=== PATIENT | female | born 1990 | race Caucasian/White ===

== ENCOUNTER 2017-07-16 08:05 | Day surgery (SDC) | payer OTHER ==
[~2017-07-16] VITALS: Ht 160 cm; Wt 125.2 kg
[~2017-07-16 08:05] MED LIST: ACEBUTCAFT PO; ALBU90OI INH; AMIT25 PO; AMOCLA875 PO; ARIP10 PO; ATEN50 PO; AZIT250 PO; Ativan1 MG PO; BIRTH CONTROL; CEPH500 PO; CHOL10002 PO; CODBUTACEC PO; CYCL10 PO; Camila0.35 MG PO; DULO60 PO; ERGO50000 PO; ETHINYL ESTRADIOL; FLUO10 PO; FLUO20 PO; FLUOXETINE HCL60 MG PO; FLUT.05NI; Flonase 0.05% N16 GM; GABA300 PO; GUAIFENESIN1200 MG PO; HYDACE5 PO; IBUP800 PO; KETO10 PO; LEVSOD75 PO; LITH300C PO; LORA2 PO; NAPR500 PO; NAPR550 PO; NASACORT10.8 ML INH; NITR100CA PO; NORGESTIMATE; OXYACE5T PO; PANT20 PO; PENVK500 PO; PROC10 PO; PROCODE120 PO; PROG100 PO; RANI150 PO; RISP.5 PO; RISP1 PO; RXHYD5325 PO; RXONDA4ODT MM; RXOXYACE PO; SERT100 PO; SPRINTEC; SULTRIDS PO; SULTRISS PO; Synthroid25 MCG PO; TIZA4 PO; TOPI25 PO; TOPI50 PO; VERAMYST; ZOLP5 PO
== END 2017-07-16 23:34 | disposition home or self-care (01) ==
LOC: ORSCMMR 08:05
PROVIDERS: Internal Medicine Gastroenterology
PROC: 0DB98ZX Excision of Duodenum, Via Natural or Artificial Opening Endoscopic, Diagnostic (ICD-10-PCS; principal; 2017-07-16 09:45)
PROC: 0DB68ZX Excision of Stomach, Via Natural or Artificial Opening Endoscopic, Diagnostic (ICD-10-PCS; principal; 2017-07-16 09:45)
PROC: 0DBL8ZX Excision of Transverse Colon, Via Natural or Artificial Opening Endoscopic, Diagnostic (ICD-10-PCS; principal; 2017-07-16 09:45)
PROC: 0DBB8ZX Excision of Ileum, Via Natural or Artificial Opening Endoscopic, Diagnostic (ICD-10-PCS; principal; 2017-07-16 09:45)
PROC: 0DBE8ZX Excision of Large Intestine, Via Natural or Artificial Opening Endoscopic, Diagnostic (ICD-10-PCS; principal; 2017-07-16 09:45)
DX: K92.1 Melena (principal); K29.50 Unspecified chronic gastritis without bleeding; D12.3 Benign neoplasm of transverse colon; K64.8 Other hemorrhoids; K57.30 Diverticulosis of large intestine without perforation or abscess without bleeding; R19.7 Diarrhea, unspecified; K21.9 Gastro-esophageal reflux disease without esophagitis; M79.7 Fibromyalgia; F41.9 Anxiety disorder, unspecified; E03.9 Hypothyroidism, unspecified; F31.9 Bipolar disorder, unspecified; Z79.899 Other long term (current) drug therapy
CPT/HCPCS: 88305; 88342; J7120

== ENCOUNTER 2018-02-07 12:11 | Day surgery (SDC) | payer OTHER ==
[~2018-02-07] VITALS: Ht 160 cm; Wt 122.8 kg
[2018-02-07] MEDS ORDERED: Zanaflex4 M1 PO (13:05)
[2018-02-07] MEDS ORDERED: MELO7.5 (13:06)
== END 2018-02-07 16:55 | disposition home or self-care (01) ==
LOC: ORSCSDS 12:11
PROVIDERS: Podiatrist Foot & Ankle Surgery
PROC: 0JNQ0ZZ Release Right Foot Subcutaneous Tissue and Fascia, Open Approach (ICD-10-PCS; principal; 2018-02-07 14:00)
PROC: 0QBN0ZZ Excision of Right Metatarsal, Open Approach (ICD-10-PCS; principal; 2018-02-07 14:00)
PROC: 0L8N0ZZ Division of Right Lower Leg Tendon, Open Approach (ICD-10-PCS; principal; 2018-02-07 14:00)
DX: M21.621 Bunionette of right foot (principal); M24.571 Contracture, right ankle; M72.2 Plantar fascial fibromatosis; E03.9 Hypothyroidism, unspecified; K21.9 Gastro-esophageal reflux disease without esophagitis; E66.01 Morbid (severe) obesity due to excess calories; Z68.42 Body mass index [BMI] 45.0-49.9, adult; Z79.899 Other long term (current) drug therapy
CPT/HCPCS: J0330; J0690; J1100; J1885; J2250; J2405; J3010; J7120

== ENCOUNTER → 2018-06-08 | Outpatient (CLI) | payer OTHER ==
[~2018-06-08] MED LIST changes: +MELO7.5; +Zanaflex4 M1 PO
[2018-06-10 13:07] LABS: HPV 16 Negative (Negative); HPV 18 Negative (Negative); HPV OTHER HR TYPES Negative (Negative)
== END | disposition home or self-care (01) ==
LOC: LAB 17:25 → LAB SHORT 17:25
PROVIDERS: Nurse Practitioner Women's Health
DX: Z12.4 Encounter for screening for malignant neoplasm of cervix (principal); Z91.89 Other specified personal risk factors, not elsewhere classified
CPT/HCPCS: 87624; G0123

== ENCOUNTER → 2018-08-13 | Outpatient (CLI) | payer OTHER | LOC: LAB SHORT 18:34 → LAB EV 18:34 | DX: L03.316 Cellulitis of umbilicus (principal) | CPT/HCPCS: 87070; 87205 ==

== ENCOUNTER → 2018-09-14 | Outpatient (CLI) | payer OTHER | END | disposition home or self-care (01) | LOC: LAB SHORT 10:00 → LAB SRC 10:00 | DX: R19.8 Other specified symptoms and signs involving the digestive system and abdomen (principal) | CPT/HCPCS: 87070; 87205 ==

== ENCOUNTER → 2019-08-13 | Outpatient (CLI) | payer OTHER | END | disposition home or self-care (01) | LOC: LAB SHORT 14:05 → LAB EV 14:05 | DX: J02.9 Acute pharyngitis, unspecified (principal) | CPT/HCPCS: 87081 ==

== ENCOUNTER → 2020-05-14 | Outpatient (CLI) | payer OTHER ==
[~2020-05-14] MED LIST changes: +ALDACTONE100 MG PO; +COLESTID1 G1 PO; +DICY20; +FAMO20 PO; +LEVSOD100 PO; -LEVSOD75 PO; +METF500C PO; +VALTREX500 M1
== END | disposition home or self-care (01) ==
LOC: LAB 18:51
DX: J02.9 Acute pharyngitis, unspecified (principal)
CPT/HCPCS: 87081

== ENCOUNTER → 2020-05-31 | Outpatient (CLI) | payer OTHER | END | disposition home or self-care (01) | LOC: LAB 10:00 | DX: J02.9 Acute pharyngitis, unspecified (principal) | CPT/HCPCS: 87081 ==

== ENCOUNTER → 2020-07-09 | Outpatient (CLI) | payer OTHER | END | disposition home or self-care (01) | LOC: PLD 12:18 → LAB SHORT 12:18 → LAB FUT 07-09 12:15 | DX: N30.00 Acute cystitis without hematuria (principal); R10.9 Unspecified abdominal pain | CPT/HCPCS: 87086 ==

== ENCOUNTER 2020-08-05 10:50 | Day surgery (SDC) | payer OTHER ==
[~2020-08-05] VITALS: Ht 160 cm; Wt 114.2 kg
[~2020-08-05 10:50] MED LIST changes: -ALDACTONE100 MG PO; -DICY20
[2020-08-05] MEDS ORDERED: DICY20 (11:16)
[2020-08-05] MEDS ORDERED: ALDACTONE100 MG PO (11:30)
== END 2020-08-05 14:09 | disposition home or self-care (01) ==
LOC: ORSCSDS 10:50
PROVIDERS: Otolaryngology
PROC: 0CBPXZZ Excision of Tonsils, External Approach (ICD-10-PCS; principal; 2020-08-05 11:30)
DX: J35.01 Chronic tonsillitis (principal); E03.9 Hypothyroidism, unspecified; F32.9 Major depressive disorder, single episode, unspecified; E28.2 Polycystic ovarian syndrome; G47.33 Obstructive sleep apnea (adult) (pediatric); E11.9 Type 2 diabetes mellitus without complications; E66.01 Morbid (severe) obesity due to excess calories; Z68.41 Body mass index [BMI] 40.0-44.9, adult; M79.7 Fibromyalgia; Z79.84 Long term (current) use of oral hypoglycemic drugs; Z79.899 Other long term (current) drug therapy
CPT/HCPCS: 82947; 88304; J1100; J2250; J2405; J2704; J3010; J7120

== ENCOUNTER 2020-08-11 04:07 | Emergency (ER) | payer OTHER ==
[~2020-08-11] VITALS: Ht 160 cm; Wt 111.1 kg
[~2020-08-11 04:07] MED LIST changes: +ALDACTONE100 MG PO; +DICY20
== END 2020-08-11 11:21 | disposition home or self-care (01) ==
LOC: ER 04:07
DX: K91.840 Postprocedural hemorrhage of a digestive system organ or structure following a digestive system procedure (principal); Z79.84 Long term (current) use of oral hypoglycemic drugs; Z79.899 Other long term (current) drug therapy; Y83.9 Surgical procedure, unspecified as the cause of abnormal reaction of the patient, or of later complication, without mention of misadventure at the time of the procedure
CPT/HCPCS: 42960; 96361-59; 96365-59; 96368; 96375-59; 96376-59; 99283-25; A9270; C9132; J2405; J3010; J3430; J7030

== ENCOUNTER 2023-01-20 13:50 | Day surgery (SDC) | payer OTHER ==
[~2023-01-20] VITALS: Ht 160 cm; Wt 113.2 kg
[2023-01-20 16:04] VITALS: BP 116/82
== END 2023-01-20 15:55 | disposition home or self-care (01) ==
LOC: ORSCSDS 13:50
PROVIDERS: Internal Medicine Gastroenterology
PROC: 0DJD8ZZ Inspection of Lower Intestinal Tract, Via Natural or Artificial Opening Endoscopic (ICD-10-PCS; principal; 2023-01-20 15:00)
DX: K58.0 Irritable bowel syndrome with diarrhea (principal); Z86.010 Personal history of colon polyps; K64.8 Other hemorrhoids; K57.30 Diverticulosis of large intestine without perforation or abscess without bleeding; K21.9 Gastro-esophageal reflux disease without esophagitis; I10 Essential (primary) hypertension; G47.33 Obstructive sleep apnea (adult) (pediatric); Z68.41 Body mass index [BMI] 40.0-44.9, adult; E66.01 Morbid (severe) obesity due to excess calories; Z87.891 Personal history of nicotine dependence; Z79.899 Other long term (current) drug therapy
CPT/HCPCS: 82947; J0461; J2001; J2405; J2704; J7120; Q9968

== ENCOUNTER 2024-08-31 04:50 | Emergency (ER) | payer OTHER ==
[~2024-08-31] VITALS: Ht 160 cm; Wt 117.9 kg
[2024-08-31 05:09] LABS: Hematocrit 34.2 % (33.0-51.0); Hemoglobin 10.1 g/dL (11.5-16.0); Mean Corpuscular HGB 20.7 pg (26.0-34.0); Mean Corpuscular HGB Conc 29.5 g/dL (31.5-36.5); Mean Corpuscular Volume 70 fL (80-100); Mean Platelet Volume 9.2 fL (9.1-12.4); Platelet Count 571 K/mm3 (150-400); RDW Coefficient Variation 17.4 % (11.7-14.2); RDW Standard Deviation 43.5 fL (35.1-46.3); Red Blood Cell Count 4.87 M/mm3 (3.80-5.20); White Blood Cell Count 11.11 K/mm3 (4.00-11.30)
[2024-08-31 05:40] LABS: BASOPHILS ABSOLUTE MAN 0.11 K/mm3 (0.00-0.23); BASOPHILS PERCENT MAN 1 % (0-2); EOSINOPHILS ABSOLUTE MAN 0.33 K/mm3 (0.00-0.68); EOSINOPHILS PERCENT MAN 3 % (0-6); LYMPHOCYTES ABSOLUTE MAN 4.44 K/mm3 (0.84-5.20); LYMPHOCYTES PERCENT MAN 40 % (21-46); MONOCYTES ABSOLUTE MAN 0.66 K/mm3 (0.16-1.47); MONOCYTES PERCENT MAN 6 % (4-13); NEUTROPHILS ABSOLUTE MAN 5.55 K/mm3 (1.96-9.15); SEG NEUTROPHILS PERCENT MAN 50 % (41-73); TOTAL CELLS COUNTED 100
[2024-08-31 05:47] LABS: Albumin, Blood 4.2 g/dL (3.4-5.0); Bilirubin, Total 0.3 mg/dL (0.1-1.0); Calcium, Blood 9.2 mg/dL (8.5-10.1); Creatinine, Blood 0.88 mg/dL (0.40-1.00); Globulin, Blood 4.3 g/dL (2.2-4.0); Potassium, Blood 3.7 mmol/L (3.5-5.5); Total Protein, Blood 8.5 g/dL (6.4-8.2)
[2024-08-31] MEDS ORDERED: Ondansetron HCl 2 MG / ML 2ML Vial IV ONE (08:25)
[2024-08-31 08:40] VITALS: BP 123/82
== END 2024-08-31 09:07 | disposition home or self-care (01) ==
LOC: ER 04:50
PROVIDERS: Emergency Medicine
DX: R07.9 Chest pain, unspecified (principal); F43.10 Post-traumatic stress disorder, unspecified; G43.909 Migraine, unspecified, not intractable, without status migrainosus; Z79.899 Other long term (current) drug therapy; Z79.84 Long term (current) use of oral hypoglycemic drugs; Z79.891 Long term (current) use of opiate analgesic
CPT/HCPCS: 71046; 80053; 84484; 85025; 85379; 93005; 93010; 96374; 99285-25; J2405

== ENCOUNTER → 2024-09-21 | Outpatient (CLI) | payer OTHER ==
[2024-10-03 08:46] LABS: Stool Occult Bld Immuno 1 Negative (NEGATIVE)
== END ==
LOC: LAB 15:50 → LAB SHORT 15:50
PROVIDERS: Physician Assistant
DX: D50.9 Iron deficiency anemia, unspecified (principal)
CPT/HCPCS: G0328